=== PATIENT | male | born 1980 | race Asian ===

== ENCOUNTER 2023-05-08 07:33 | Outpatient (REF) | payer OTHER, SELFPAY ==
[2023-05-08 11:23] LABS: MANUAL DIFF FLAG NO
[2023-05-08 11:41] LABS: Basophils Absolute Auto 0.1 X10*3/uL (0.0-0.2); Basophils Percent Auto 0.8 % (0-2); Eosinophils Absolute Auto 0.1 X10*3/uL (0.0-0.4); Eosinophils Percent Auto 1.9 % (0-4); Hematocrit 47.1 % (42.0-52.0); Hemoglobin 15.5 g/dl (14.0-18.0); Imm Gran Abs Auto 0.01 X10*3/uL (0.00-0.03); Imm Gran Pct Auto 0.2 % (0.0-0.4); Lymphocytes Absolute Auto 2.3 X10*3/uL (1.2-4.9); Lymphocytes Percent Auto 36.8 % (20-40); Mean Corpuscular HGB Conc 32.9 g/dl (31.0-36.0); Mean Corpuscular Hemoglobin 27.6 pg (27.0-33.0); Mean Platelet Volume 12.3 fL (9.4-12.4); Monocytes Absolute Auto 0.6 X10*3/uL (0.1-1.2); Monocytes Percent Auto 8.9 % (2-11); Neutrophils Absolute Auto 3.2 x10*3/uL (2.0-8.3); Neutrophils Percent Auto 51.4 % (45-73); Platelet Count 200 X10*3/uL (160-400); Red Blood Count 5.61 X10*6/uL (4.60-5.80); Red Cell Distribution Width 12.7 % (11.0-16.0); White Blood Count 6.3 X10*3/uL (4.8-10.8)
[2023-05-08 11:48] LABS: Appearance Urine Clear; Color Urine Yellow; Glucose Urine UA Negative (Negative); Leukocyte Esterase Urine Negative (Negative); Nitrite Urine Negative (Negative); PH 6.5 (5.0-9.0); Urine Blood Negative (Negative); Urine Ketones Negative (Negative); Urine Protein Negative (Neg-Trace)
[2023-05-08 12:24] LABS: Alanine Aminotransferase 20 U/L (0-40); Albumin Level 4.1 g/dL (3.5-5.0); Alkaline Phosphatase 63 U/L (39-117); Anion Gap 11 (12-20); Aspartate Amino Transferase 20 U/L (5-37); Bilirubin Total 0.7 mg/dL (0.0-1.0); Blood Urea Nitrogen 14 mg/dL (9-16); Calcium 9.2 mg/dL (8.4-10.2); Carbon Dioxide 26 mmol/L (22-29); Chloride 105 mmol/L (96-108); Cholesterol 171 mg/dL; Estimated Glomerular Filt Rate > 60; Glucose Fasting 87 mg/dL (60-99); HDL Cholesterol 34 mg/dL; LDL Cholesterol Calculated 111 mg/dl; Potassium 3.9 mmol/L (3.3-5.1); Sodium 138 mmol/L (135-145); TSH reflex Free T4 6.26 uIU/mL (0.32-4.0); Total Protein 7.8 g/dL (6.5-8.0); Triglycerides 130 mg/dL
[2023-05-08 13:20] LABS: Free T4 (Free Thyroxine) 1.06 ng/dL (0.71-1.85)
== END 2023-05-08 07:34 | disposition home or self-care (01) ==
LOC: HO.HMGCLDS 07:33
PROVIDERS: PCP Nurse Practitioner Family; Visit Provider Nurse Practitioner Family
DX: Z00.00 Encounter for general adult medical examination without abnormal findings (principal); R94.6 Abnormal results of thyroid function studies
CPT/HCPCS: 36415; 80053; 80061; 81003; 84439; 84443; 85025

== ENCOUNTER 2023-07-10 07:54 | Outpatient (REF) | payer OTHER, SELFPAY ==
[2023-07-10 11:59] LABS: TSH reflex Free T4 2.46 uIU/mL (0.32-4.0)
== END 2023-07-10 07:55 | disposition home or self-care (01) ==
LOC: HO.HMGCLDS 07:54
PROVIDERS: PCP Nurse Practitioner Family; Visit Provider Nurse Practitioner Family
DX: R94.6 Abnormal results of thyroid function studies (principal)
CPT/HCPCS: 36415; 84443

== ENCOUNTER 2024-03-27 12:30 | Outpatient (AMB) | payer OTHER, SELFPAY ==
[2024-03-27 12:32] VITALS: BP 150/100; PULSE 84; TEMP 36.2; O2SAT 99; BMI 23.4
--- NOTE | 2024-03-27 12:32 | MHC.OFFWIV ---
Intake Vital Signs 03/27/24 12:32 Height 5 ft 6 in Weight 145 lb BMI 23.4 BP 150/100 H Blood Pressure Location Lt brachial Position Sitting Pulse 84 Pulse Source Pulse Oximeter Temp 97.2 F Temp Source Temporal Artery Scan Pulse Oximetry (%) 99 Oxygen Delivery Method Room Air Intake Visit Reasons: EST/ left shoulder pain (lobby) Intake Note: pt is here today for lft shoulder pain started 2 weeks ago Patient Tobacco Use Status: Never used Tobacco Allergies No Known Allergies Allergy (Verified 03/27/24 12:35) Do you need a note to return to daycare/school/sports/work: Yes HPI HPI Comments History of Present Illness Details The patient presents to urgent care for evaluation of left shoulder pain. He reports that about 2 weeks ago during his usual gym workout he strained his left shoulder. He was using a weight machine for his shoulders at the time. There was no direct trauma. He has not used those same weight machines since that but has been using biceps weights. He has been doing stretches for his arm and shoulder but reports decreased range of motion of the shoulder joint. There is some pain in the biceps when he stretches in certain directions. [facility] Medical History (Updated 03/27/24 @ 12:58 by Nieves Hewitt DO) Left shoulder strain Social History Housing: Apartment Patient Tobacco Use Status: Never used Tobacco e-Cigarette/Vaping Use: Never Used Second Hand Smoke Exposure: No service: No Current occupational status: employed Current occupation: [employer] Current occupational exposures/hazards: No Cognitive needs: No Hearing needs: No Vision needs: No Physical Exam Vital Signs: Last Vital Signs Temp 97.2 F 03/27/24 12:32 Pulse 84 03/27/24 12:32 BP 150/100 H 03/27/24 12:32 Pulse Ox 99 03/27/24 12:32 Oxygen Delivery Method Room Air 03/27/24 12:32 BMI result Body Mass Index 23.4 Const General: cooperative and healthy appearing Orientation/consciousness: patient oriented x3 Back/Spine/Pelvis Back: No back tenderness Skin General skin exam: no rashes or lesions noted Neuro General: patient oriented x3 Extrem Other: Left shoulder- no significant tender to palpation. No bony deformity no swelling no ecchymosis. Limited range of motion with abduction of the arm above the head and behind the back. Psych Attitude: cooperative Assessment & Plan Assessment & Plan (1) Left shoulder strain: Code(s): S46.912A - Strain of unspecified muscle, fascia and tendon at shoulder and upper arm level, left arm, initial encounter Plan: Symptoms consistent with muscle strain versus possible rotator cuff injury. Patient was advised to avoid using any weights of the left upper extremity and doing a very small range of motion exercises for the shoulder joint. Will refer to Physical therapy. Recommend using ibuprofen as needed for discomfort. Work note given for today. Orders: Orders PT Evaluation and Treatment Today S46.912A - Strain of unspecified muscle, fascia and tendon at shoulder and upper arm level, left arm, initial encounter Coding Level of Care Code Est Pt Level 3 (37158) Diagnoses Left shoulder strain S46.912A
== END 2024-03-27 13:52 | disposition home or self-care (01) ==
PROVIDERS: PCP Nurse Practitioner Family; Visit Provider Emergency Medicine
DX: S46.912A Strain of unspecified muscle, fascia and tendon at shoulder and upper arm level, left arm, initial encounter (principal)
CPT/HCPCS: 99213

== ENCOUNTER 2024-05-06 10:31 | Outpatient (AMB) | payer OTHER, SELFPAY ==
--- NOTE | 2024-05-06 10:35 | MHC.PC.OV ---
Vital Signs 05/06/24 10:38 Height 5 ft 6 in Weight 142 lb BMI 22.9 BP 122/84 Blood Pressure Location Lt brachial Position Sitting Pulse 84 Pulse Source Pulse Oximeter Pulse Oximetry (%) 100 Oxygen Delivery Method Room Air Intake Visit Reasons: New Patient/ med review/ Thyroid, Est Pt. Annual PE Intake Note: Pt here for annual PE. Colonoscopy due Allergies No Known Allergies Allergy (Verified 05/06/24 10:52) Medication List - Last Reconciled 05/06/24 by KHLOE Russ levothyroxine 100 mcg PO DAILY 90 days Tobacco use date assessed: 05/06/24 Dental Screening Dental Screen Date: 05/06/24 Did you have a dental visit in the last 12 months?: No Did you have a dental problem in the last 6 months where you did not have access to dental care?: No Was dental information given to patient?: No HPI HPI Comments History of Present Illness Details Patient is a 43-year-old male who I am meeting for the 1st time in for physical exam. He has labs from previous provider and states his tetanus is up-to-date, he will send us records Patient is due for colonoscopy, will refer. Patient is due for PSA will draw. Patient has a past medical history significant for: Hypothyroidism: Currently utilizing levothyroxine 100 mcg p.o. daily. Left shoulder strain: Patient currently undergoing physical therapy. Will draw full panel fasting labs today. [facility] Medical History Left shoulder strain Family History Father Diabetes type 2, controlled Social History Housing: Apartment Patient Tobacco Use Status: Never used Tobacco e-Cigarette/Vaping Use: Never Used Second Hand Smoke Exposure: No service: No Current occupational status: employed Current occupation: [employer] Current occupational exposures/hazards: No Cognitive needs: No Hearing needs: No Vision needs: No Questionnaire PHQ-9 Over the last 2 weeks, how often have you been bothered by any of the following problems? 1. Little interest or pleasure in doing things: not at all 2. Feeling down, depressed, or hopeless: not at all 3. Trouble falling or staying asleep, or sleeping too much: not at all 4. Feeling tired or having little energy: not at all 5. Poor appetite or overeating: not at all 6. Feeling bad about yourself - or that you are a failure or have let yourself or your family down: not at all 7. Trouble concentrating on things, such as reading the newspaper or watching television: not at all 8. Moving or speaking so slowly that other people could have noticed. Or the opposite - being so fidgety or restless that you have been moving around a lot more than usual: not at all 9. Thoughts that you would be better off or of hurting yourself in some way: not at all Total score: 0 Depression Screening Interpretation: Negative Depression Screening Done: Yes 24038 - PHQ-9 Billing: Yes Source: Developed by Drs. Raul Mcgraw, Ml Stock, Rufino Webster and colleagues, with an educational gunjan from [employer]. Thrive Questionnaire Date Thrive assessed: 05/06/24 I am a: Patient What is your living situation today?: I have a steady place to live Within the past 12 months, did the food you bought not last and you didn't have the money to get more?: Never true Within the past 12 months, did you worry whether your food would run out before you got money to buy more?: Never true Do you have trouble paying for medicines?: No Do you have trouble getting transportation to medical appointments?: No Do you have trouble paying your heating and electricity bill?: No Do you have trouble taking care of your child, family member or friend?: No Do you have trouble with day-to-day activities such as bathing, preparing meals, shopping, managing finances, etc.?: No Are you currently unemployed and looking for a job?: No Are you interested in more education?: No Please select the resources that you would like help with: None Currently or been in a relationship where the following occur: no concerns reported THRIVE Score: 0 AUDIT C Alcohol Use Questionnaire (AUDIT-C) 1. How often do you have a drink containing alcohol?: Never Total Score: 0 LOLI-7 AMB Questionnaire LOLI-7 Date LOLI - 7 assessed: 05/06/24 Feeling nervous, anxious, or on edge: 0 = Not at all Not being able to stop or control worryin = Not at all Worrying too much about different things: 0 = Not at all Trouble relaxin = Not at all Being so restless that it is hard to sit still: 0 = Not at all Becoming easily annoyed or irritable: 0 = Not at all Feeling afraid as if something awful might happen: 0 = Not at all Total LOLI-7 score (0-4 normal; 5-9 mild; 10-14 moderate; 15-21 severe): 0 Source: Developed by Drs. Raul Mcgraw, Ml Stock, Rufino Webster and colleagues, with an educational gunjan from [employer]. LOLI-7 Assessment Billing LOLI-7 Assessment Tool: LOLI-7 Assessment 13985 Review of Systems Const All systems reviewed & are unremarkable except as noted in HPI and below Physical exam (Primary Care) Care Plan Goal for BP management: BP is controlled. Tobacco/Smoking Status: Tobacco use Status Tobacco use date assessed 05/06/24 05/06/24 10:36 Patient Tobacco Use Status Never used Tobacco 05/06/24 10:36 e-Cigarette/Vaping Use Never Used 05/06/24 10:36 Depression Screening Interpretation: Negative Thrive Assessment: Date of Thrive Assessment Date Thrive assessed 05/07/23 05/06/24 10:36 Currently or been in a relationship where the following occur: no concerns reported Const Other: Appearance: Alert.? Oriented X3.? No acute distress.? Head: Normocephalic. Eyes: Pupils equal, round and reactive to light.?Sclera white. ENT: Pharynx normal.?TM intact and pearly carrizales. Neck: Normal inspection.? Neck supple.?Full ROM. CVS: Normal heart rate and rhythm.? Pulses normal.? Respiratory: No respiratory distress.? Breath sounds normal.? Abdomen: Soft and nontender.? Skin: Skin warm and dry.? Normal skin color.? Normal skin turgor.? Extremities: No lower extremity edema.? No calf ttp. 5/5 strength to bilateral upper and lower extremities Back: No midline tenderness, no C-spine tenderness, full range of motion, no CVA tenderness bilaterally Neuro: Oriented X 3.? No motor deficit.? No sensory deficit. CN 2-12 intact Assessment and Plan Assessment & Plan (1) Physical exam: Comment: He has labs from previous provider and states his tetanus is up-to-date, he will send us records Patient is due for colonoscopy, will refer. Patient is due for PSA will draw. Patient has a past medical history significant for: Hypothyroidism: Currently utilizing levothyroxine 100 mcg p.o. daily. Left shoulder strain: Patient currently undergoing physical therapy. Will draw full panel fasting labs today. Code(s): Z00.00 - Encounter for general adult medical examination without abnormal findings (2) Elevated TSH: Comment: Will draw TSH and free T4. Patient currently utilizing 100 mcg levothyroxine sodium Code(s): R79.89 - Other specified abnormal findings of blood chemistry (3) Left shoulder strain: Comment: Patient currently undergoing physical therapy with good effect Code(s): S46.912A - Strain of unspecified muscle, fascia and tendon at shoulder and upper arm level, left arm, initial encounter Qualifiers: Encounter type: initial encounter Qualified Code(s): S46.912A - Strain of unspecified muscle, fascia and tendon at shoulder and upper arm level, left arm, initial encounter (4) Screening for colon cancer: Comment: Patient has referral to GI. Code(s): Z12.11 - Encounter for screening for malignant neoplasm of colon Plan: Draw lab Plan Will follow-up last Orders: Orders Vitamin D 25-OH (D2 and D3) Today Z13.21 - Encounter for screening for nutritional disorder Complete Blood Count Auto Diff Today Z13.0 - Encounter for screening for diseases of the blood and blood-forming organs and certain disorders involving the immune mechanism Hemoglobin A1c Today Z13.1 - Encounter for screening for diabetes mellitus PSA,Total (Free>4and<10) Today Z12.5 - Encounter for screening for malignant neoplasm of prostate Vitamin B6 Today Z13.21 - Encounter for screening for nutritional disorder Vitamin B12 Today Z91.89 - Other specified personal risk factors, not elsewhere classified UA CC w/rflx Micro + Cult Today Z13.89 - Encounter for screening for other disorder TSH reflex Free T4 Today Z13.29 - Encounter for screening for other suspected endocrine disorder Lipid Panel Today Z13.220 - Encounter for screening for lipoid disorders Comprehensive Met. Panel Today Z91.89 - Other specified personal risk factors, not elsewhere classified Referrals Gastroenterology Referral Z12.11 - Encounter for screening for malignant neoplasm of colon Medications: Refilled levothyroxine 100 mcg PO DAILY 90 days 90 tabs 2RF Coding Level of Care Code Est Pt Prev Care 40-64y(63440) Diagnoses Physical exam Z00.00 Elevated TSH R79.89 Strain of left shoulder, initial encounter S46.912A Encounter type: initial encounter Screening for colon cancer Z12.11 Additional Codes LOLI-7 Assessment Billing - LOLI-7 Assessment Tool: LOLI-7 Assessment 11049 ([id number]) Time Spent (min) 26
[2024-05-06 10:38] VITALS: BP 122/84; PULSE 84; O2SAT 100; BMI 22.9
== END 2024-05-06 11:06 | disposition home or self-care (01) ==
PROVIDERS: PCP Nurse Practitioner Family; Visit Provider Nurse Practitioner Primary Care
DX: Z00.00 Encounter for general adult medical examination without abnormal findings (principal); R79.89 Other specified abnormal findings of blood chemistry; S46.912A Strain of unspecified muscle, fascia and tendon at shoulder and upper arm level, left arm, initial encounter; Z12.11 Encounter for screening for malignant neoplasm of colon
CPT/HCPCS: 99396

== ENCOUNTER 2024-05-07 06:50 | Outpatient (REF) | payer OTHER, SELFPAY ==
[2024-05-07 11:25] LABS: MANUAL DIFF FLAG NO
[2024-05-07 11:28] LABS: Basophils Percent Auto 0.6 % (0-2); Eosinophils Absolute Auto 0.2 X10*3/uL (0.0-0.4); Eosinophils Percent Auto 2.5 % (0-4); Hematocrit 47.4 % (42.0-52.0); Hemoglobin 16.1 g/dl (14.0-18.0); Imm Gran Abs Auto 0.03 X10*3/uL (0.00-0.03); Imm Gran Pct Auto 0.4 % (0.0-0.4); Lymphocytes Absolute Auto 2.1 X10*3/uL (1.2-4.9); Lymphocytes Percent Auto 30.6 % (20-40); Mean Corpuscular Hemoglobin 28.2 pg (27.0-33.0); Monocytes Absolute Auto 0.6 X10*3/uL (0.1-1.2); Monocytes Percent Auto 8.7 % (2-11); Neutrophils Absolute Auto 3.9 x10*3/uL (2.0-8.3); Neutrophils Percent Auto 57.2 % (45-73); Platelet Count 211 X10*3/uL (160-400); Red Blood Count 5.71 X10*6/uL (4.60-5.80); White Blood Count 6.9 X10*3/uL (4.8-10.8)
[2024-05-07 11:38] LABS: Estimated Average Glucose 108 mg/dL; Hemoglobin A1c % 5.4 % (<6.0)
[2024-05-07 11:46] LABS: Alanine Aminotransferase 32 U/L (0-40); Albumin Level 4.2 g/dL (3.5-5.0); Alkaline Phosphatase 65 U/L (39-117); Anion Gap 8 (12-20); Aspartate Amino Transferase 25 U/L (5-37); Bilirubin Total 0.6 mg/dL (0.0-1.0); Blood Urea Nitrogen 11 mg/dL (9-16); Calcium 8.6 mg/dL (8.4-10.2); Carbon Dioxide 28 mmol/L (22-29); Chloride 106 mmol/L (96-108); Cholesterol 178 mg/dL (<200); Estimated Glomerular Filt Rate > 60; Glucose Random 89 mg/dL (60-115); HDL Cholesterol 33 mg/dL (>40); LDL Cholesterol Calculated 114 mg/dL (<100); Potassium 4.4 mmol/L (3.3-5.1); Sodium 138 mmol/L (135-145); Total Protein 7.7 g/dL (6.5-8.0); Triglycerides 156 mg/dL (<150)
[2024-05-07 11:49] LABS: Appearance Urine Clear; Color Urine Yellow; Glucose Urine UA Negative (Negative); Leukocyte Esterase Urine Negative (Negative); Nitrite Urine Negative (Negative); Specific Gravity - Urine <= 1.005 (1.005-1.025); Urine Blood Negative (Negative); Urine Ketones Negative (Negative); Urine Protein Negative (Neg-Trace)
[2024-05-07 11:57] LABS: PSA,Total (Free>4and<10) 0.76 ng/mL (0.00-4.00)
[2024-05-07 12:03] LABS: Vitamin B12 271 pg/mL (200-900)
[2024-05-07 12:06] LABS: TSH reflex Free T4 3.51 uIU/mL (0.32-4.0)
[2024-05-11 16:49] LABS: Vitamin D 25-OH, D2 <4 ng/mL; Vitamin D 25-OH, D3 19 ng/mL; Vitamin D 25-OH, Total 19 ng/mL (30-100)
[2024-05-12 15:32] LABS: Vitamin B6 26.2 ng/mL (2.1-21.7)
== END 2024-05-07 06:51 | disposition home or self-care (01) ==
LOC: HO.HMGCLDS 06:50
PROVIDERS: PCP Nurse Practitioner Family; Visit Provider Nurse Practitioner Primary Care
DX: Z13.21 Encounter for screening for nutritional disorder (principal); Z13.0 Encounter for screening for diseases of the blood and blood-forming organs and certain disorders involving the immune mechanism; Z13.1 Encounter for screening for diabetes mellitus; Z12.5 Encounter for screening for malignant neoplasm of prostate; Z13.220 Encounter for screening for lipoid disorders; Z91.89 Other specified personal risk factors, not elsewhere classified; Z13.89 Encounter for screening for other disorder; Z13.29 Encounter for screening for other suspected endocrine disorder
CPT/HCPCS: 36415; 80053; 80061; 81003; 82306; 82607; 83036; 84153; 84207; 84443; 85025

== ENCOUNTER 2025-06-18 07:53 | Outpatient (REF) | payer OTHER, SELFPAY | END 2025-06-18 07:54 | disposition home or self-care (01) | LOC: HO.HMGCLDS 07:53 | PROVIDERS: PCP Internal Medicine; Visit Provider Internal Medicine | DX: R79.89 Other specified abnormal findings of blood chemistry (principal) | CPT/HCPCS: 36415; 82306; 84207; 84443 ==

== ENCOUNTER 2025-06-19 10:55 | Outpatient (AMB) | payer OTHER, SELFPAY ==
--- NOTE | 2025-06-19 10:55 | A.OFFPC_ITS ---
Intake Visit Reasons: Med and lab followup Android Allergies No Known Allergies Allergy (Verified 06/19/25 11:00) Medication List - Last Reconciled 06/19/25 by Franca Trent MD levothyroxine 100 mcg PO DAILY 90 days Tobacco use date assessed: 06/19/25 Dental Screening Dental Screen Date: 06/19/25 Did you have a dental visit in the last 12 months?: Yes Did you have a dental problem in the last 6 months where you did not have access to dental care?: No Was dental information given to patient?: Patient has dentist HPI Med and lab followup Android HPI Details 44-year-old male with history of hypothy roidism, here for follow-up on his recent lab results. Currently taking levothyroxine 100 mcg taken once a day, and has been feeling well on this dose which he has been on now for the last 8 years . Latest labs showed his thyroid stimulating hormone and vitamin-D level are within normal limits. He also has history of dyslipidemia, and states that his lipids have not been checked in a while. Has been compliant with healthy eating habits. [facility] Medical History (Updated 06/21/25 @ 17:22 by Franca Trent MD) Hypothyroidism Hypertriglyceridemia Left shoulder strain Surgical History No pertinent past surgical history Family History Father Diabetes type 2, controlled Social History Housing: Apartment Patient Tobacco Use Status: Never used Tobacco e-Cigarette/Vaping Use: Never Used Second Hand Smoke Exposure: No service: No Current occupational status: employed Current occupation: [employer] Current occupational exposures/hazards: No Cognitive needs: No Hearing needs: No Vision needs: No Questionnaire PHQ-9 Over the last 2 weeks, how often have you been bothered by any of the following problems? 1. Little interest or pleasure in doing things: not at all 2. Feeling down, depressed, or hopeless: not at all 3. Trouble falling or staying asleep, or sleeping too much: not at all 4. Feeling tired or having little energy: not at all 5. Poor appetite or overeating: not at all 6. Feeling bad about yourself - or that you are a failure or have let yourself or your family down: not at all 7. Trouble concentrating on things, such as reading the newspaper or watching television: not at all 8. Moving or speaking so slowly that other people could have noticed. Or the opposite - being so fidgety or restless that you have been moving around a lot more than usual: not at all 9. Thoughts that you would be better off or of hurting yourself in some way: not at all Total score: 0 Depression Screening Interpretation: Negative Depression Screening Done: Yes 93207 - PHQ-9 Billing: Yes Source: Developed by Drs. Raul Mcgraw, Ml Stock, Rufino Webster and colleagues, with an educational gunjan from [employer]. Thrive Questionnaire Date Thrive assessed: 06/19/25 I am a: Patient What is your living situation today?: I have a steady place to live Within the past 12 months, did the food you bought not last and you didn't have the money to get more?: Never true Within the past 12 months, did you worry whether your food would run out before you got money to buy more?: Never true Do you have trouble paying for medicines?: No Do you have trouble getting transportation to medical appointments?: No Do you have trouble paying your heating and electricity bill?: No Do you have trouble taking care of your child, family member or friend?: No Do you have trouble with day-to-day activities such as bathing, preparing meals, shopping, managing finances, etc.?: No Are you currently unemployed and looking for a job?: No Are you interested in more education?: No Please select the resources that you would like help with: None Currently or been in a relationship where the following occur: No concerns reported THRIVE Score: 0 AUDIT C Alcohol Use Questionnaire (AUDIT-C) 1. How often do you have a drink containing alcohol?: Never 3. How often do you have six or more drinks on one occasion?: Never Total Score: 0 Score Reviewed/Action Taken: Yes LOLI-7 AMB Questionnaire LOLI-7 Date LOLI - 7 assessed: 06/19/25 Feeling nervous, anxious, or on edge: 0 = Not at all Not being able to stop or control worryin = Not at all Worrying too much about different things: 0 = Not at all Trouble relaxin = Not at all Being so restless that it is hard to sit still: 0 = Not at all Becoming easily annoyed or irritable: 0 = Not at all Feeling afraid as if something awful might happen: 0 = Not at all Total LOLI-7 score (0-4 normal; 5-9 mild; 10-14 moderate; 15-21 severe): 0 Source: Developed by Drs. Raul Mcgraw, Ml Stock, Rufino Webster and colleagues, with an educational gunjan from [employer]. LOLI-7 Assessment Billing LOLI-7 Assessment Tool: LOLI-7 Assessment 12311 Review of Systems Const All systems reviewed & are unremarkable except as noted in HPI and below Physical exam (Primary Care) Tobacco/Smoking Status: Tobacco use Status Tobacco use date assessed 06/19/25 06/19/25 10:57 Patient Tobacco Use Status Never used Tobacco 06/19/25 10:57 e-Cigarette/Vaping Use Never Used 06/19/25 10:57 PHQ-9: PHQ-9 Score PHQ-9: Total score 0 06/19/25 10:59 Depression Screening Interpretation: Negative Thrive Assessment: Date of Thrive Assessment Date Thrive assessed 06/19/25 06/19/25 10:57 Currently or been in a relationship where the following occur: No concerns reported Telehealth Telehealth Telehealth Platform: [facility] Location of provider rendering services: practice address Location of patient: address on file Patient Identification confirmed using: Name, : Yes Telehealth method: video Patient verbally consented to treatment: Yes Patient verbally consented to billing insurance company: Yes Patient informed of any privacy concerns related to visit: Yes Minutes spent on Phone/Video with Pt.: 15 Results Reviewed Results Reviewed: Name: Ashly Roy Age/Sex: 44/M : 1980 Unit#: [id number] Attend Dr: Franca Trent MD Re06/18/25 Status: DEP REF Location: [facility] [place] Disch: SPEC : [id number] ERIC: 06/18/25-0802 STATUS: COMP REQ : [id number] RECD: 06/18/2552 [facility] DR: Franca Trent MD COMP: 06/18/259 ENTERED: 06/18/25 [facility] DR: ORDERED: Vitamin D 25-OH, TSH Rflx Test Result Flag Reference Vitamin D 25-OH 61.9 >30 ng/mL Health Based Reference Values* < 20 ng/mL Deficient 20-30 ng/mL Insufficient > 30 ng/mL Sufficient *Sreedhar GILL. N Engl J Med. 2007;[id number]:[id number] There is no well-established upper level of normal vitamin D levels. Some laboratories use 50 ng/mL as an upper limit of normal. However, toxicity is patient-dependent and may occur at any level. Careful correlation with the patient's presentation is necessary and, if there is concern for vitamin D toxicity, treatment should be considered irrespective of the serum level. Care must be taken in interpreting Vitamin D results from different laboratories and methodologies. Published data demonstrated that results from patients undergoing hemodialysis may show a negative bias when tested with various automated 25-OH vitamin D assays when compared to LC-MS/MS. When testing samples from patients whose predominant form of Vitamin D is Vitamin D2, such as patients receiving Vi tamin D2 supplementation, results that are subtherapeutic should be confirmed with another method such as LC-MS/MS. TSH 2.20 0.32-4.0 uIU/mL Coding Level of Care Code Tele Est Pt Level 4 (24429) Diagnoses Hypertriglyceridemia E78.1 Acquired hypothyroidism E03.9 Hypothyroidism type: acquired Additional Codes LOLI-7 Assessment Billing - LOLI-7 Assessment Tool: LLOI-7 Assessment 52521 ([id number]) PHQ-9 - 92008 - PHQ-9 Billing: Yes ([id number]) Assessment & Plan Assessment & Plan (1) Hypertriglyceridemia: Code(s): E78.1 - Pure hyperglyceridemia Category: Medical Plan: Fasting lipid panel ordered (2) Hypothyroidism: Code(s): E03.9 - Hypothyroidism, unspecified Category: Medical Qualifiers: Hypothyroidism type: acquired Qualified Code(s): E03.9 - Hypothyroidism, unspecified Plan: Continued on levothyroxine 100 mcg taken once a day in a.m. an hour before eating. Orders: Orders Lipid Panel 06/20/25 E78.1 - Pure hyperglyceridemia Medications: Refilled levothyroxine 100 mcg PO DAILY 90 tabs 0RF 90 days
== END 2025-06-19 11:22 | disposition home or self-care (01) ==
LOC: HO.HMCC 10:55
PROVIDERS: PCP Internal Medicine; Visit Provider Internal Medicine
DX: E78.1 Pure hyperglyceridemia (principal); E03.9 Hypothyroidism, unspecified

== ENCOUNTER → 2025-06-19 10:55 | Outpatient (BNVA) | payer OTHER, SELFPAY | PROVIDERS: PCP Internal Medicine; Visit Provider Internal Medicine | DX: E78.1 Pure hyperglyceridemia (principal); E03.9 Hypothyroidism, unspecified; Z79.899 Other long term (current) drug therapy; Z13.31 Encounter for screening for depression; Z13.39 Encounter for screening examination for other mental health and behavioral disorders | CPT/HCPCS: 96127 ==

== ENCOUNTER 2025-06-20 08:15 | Outpatient (REF) | payer OTHER, SELFPAY ==
[2025-06-20 11:32] LABS: Cholesterol 180 mg/dL (<200); HDL Cholesterol 30 mg/dL (>40); Triglycerides 159 mg/dL (<150)
== END 2025-06-20 08:16 | disposition home or self-care (01) ==
LOC: HO.HMGCLDS 08:15
PROVIDERS: PCP Internal Medicine; Visit Provider Internal Medicine
DX: E78.1 Pure hyperglyceridemia (principal)
CPT/HCPCS: 36415; 80061